=== PATIENT | male | born 1975 | race Caucasian/White ===

== ENCOUNTER 2018-10-08 14:42 | Emergency (ER) | payer SELFPAY ==
[~2018-10-08] VITALS: Ht 175.3 cm; Wt 88.0 kg
[2018-10-08 14:47] VITALS: Ht 175.3 cm; Wt 88.0 kg
[2018-10-08 17:04] VITALS: BP 138/81
== END 2018-10-08 17:04 | disposition home or self-care (01) ==
LOC: ED 14:42
DX: R42 Dizziness and giddiness (principal); R11.2 Nausea with vomiting, unspecified; F17.210 Nicotine dependence, cigarettes, uncomplicated
CPT/HCPCS: J2765; J7030; J8597